=== PATIENT | female | born 1950 | race Caucasian/White ===

== ENCOUNTER 2017-11-26 05:56 | Emergency (ER) | payer OTHER ==
[~2017-11-26] VITALS: Ht 175.3 cm; Wt 77.1 kg
[2017-11-26] MEDS ORDERED: NORCO 5-325 TA1 EACH PO (06:49)
[2017-11-26 07:14] VITALS: BP 132/58
== END 2017-11-26 07:15 | disposition home or self-care (01) ==
LOC: M.ERS 05:56
DX: S52.502A Unspecified fracture of the lower end of left radius, initial encounter for closed fracture (principal); Z88.5 Allergy status to narcotic agent; W19.XXXA Unspecified fall, initial encounter; Y93.01 Activity, walking, marching and hiking; Y92.89 Other specified places as the place of occurrence of the external cause; Y99.8 Other external cause status